=== PATIENT | female | born 1935 | race African-American/Black ===

== ENCOUNTER 2016-12-24 08:44 | Emergency (ER) | payer MEDICARE, OTHER ==
--- NOTE | 2016-12-24 10:29 | ER Document Report ---
ED Flu Like - General Chief Complaint: Cough Stated Complaint: COLD Notes: The patient is an 81-year-old female who presents with 1 day of rhinorrhea and dry cough. Her has similar symptoms. She denies fevers, nausea, vomiting, chest pain, shortness of breath, headache, rash or leg swelling. TRAVEL OUTSIDE OF THE [place] IN LAST 30 DAYS: No - Related Data Allergies/Adverse Reactions: Penicillins Allergy (Severe, Verified 10/24/15 07:51) Hives hair dye Allergy (Severe, Uncoded 10/22/15 11:31) rash Past Medical History - General Information source: Patient - Social History Smoking Status: Never Smoker Cigarette use (# per day): No Chew tobacco use (# tins/day): No Frequency of alcohol use: None Drug Abuse: None Family History: Arthritis, Hyperlipidemia, Hypertension, Malignancy, Thyroid Disfunction Patient has suicidal ideation: No Patient has homicidal ideation: No - Past Medical History Cardiac Medical History: Reports: Hx Hypercholesterolemia Denies: Hx Coronary Artery Disease, Hx Heart Attack, Hx Hypertension Pulmonary Medical History: Denies: Hx Asthma, Hx Bronchitis, Hx COPD, Hx Pneumonia Neurological Medical History: Denies: Hx Cerebrovascular Accident, Hx Seizures Renal/ Medical History: Denies: Hx Peritoneal Dialysis GI Medical History: Reports: Hx Gastroesophageal Reflux Disease Musculoskeltal Medical History: Reports Hx Arthritis, Reports Hx Musculoskeletal Deformity, Reports Hx Musculoskeletal Trauma Traumatic Medical History: Reports: Hx Fractures, Hx Pneumothorax Past Surgical History: Reports: Hx Cholecystectomy, Hx Hysterectomy - Immunizations Immunizations up to date: Yes Hx Diphtheria, Pertussis, Tetanus Vaccination: No Review of Systems - Review of Systems Notes: REVIEW OF SYSTEMS: CONSTITUTIONAL: -fevers, -chills EENT: -eye pain, -difficulty swallowing, +nasal congestion CARDIOVASCULAR:-chest pain, -syncope. RESPIRATORY: +cough, -SOB GASTROINTESTINAL: -abdominal pain, - nausea, -vomiting, -diarrhea GENITOURINARY: -dysuria, -hematuria MUSCULOSKELETAL: -back pain, -neck pain SKIN: -rash or skin lesions. HEMATOLOGIC: -easy bruising or bleeding. LYMPHATIC: -swollen, enlarged glands. NEUROLOGICAL: -altered mental status or loss of consciousness, -headache, - neurologic symptoms PSYCHIATRIC: -anxiety, -depression. ALL OTHER SYSTEMS REVIEWED AND NEGATIVE. Physical Exam - Vital signs Vitals: Temp Pulse Resp BP Pulse Ox 97.8 F 77 18 117/67 98 12/24/16 08:59 12/24/16 08:59 12/24/16 08:59 12/24/16 08:59 12/24/16 08:59 - Notes Notes: PHYSICAL EXAMINATION: GENERAL: Well-appearing, well-nourished and in no acute distress. HEAD: Atraumatic, normocephalic. EYES: Pupils equal round and reactive to light, extraocular movements intact, sclera anicteric, conjunctiva are normal. ENT: dry rhinnorhea, nares patent, oropharynx clear without exudates. Moist mucous membranes. NECK: Normal range of motion, supple without lymphadenopathy LUNGS: Breath sounds clear to auscultation bilaterally and equal. No wheezes rales or rhonchi. HEART: Regular rate and rhythm without murmurs ABDOMEN: Soft, nontender, normoactive bowel sounds. No guarding, no rebound. No masses appreciated. EXTREMITIES: Normal range of motion, no pitting or edema. No cyanosis. NEUROLOGICAL: Cranial nerves grossly intact. Normal speech, normal gait. Normal sensory, motor, and reflex exams. PSYCH: Normal mood, normal affect. SKIN: Warm, Dry, normal turgor, no rashes or lesions noted. Course - Re-evaluation Re-evalutation: Patient appears very well. Flu negative. Instructed patient about symptomatic treatment. Will have her follow-up with her primary care physician. - Vital Signs Vital signs: Temp Pulse Resp BP Pulse Ox 97.6 F 72 16 115/70 99 12/24/16 12:01 12/24/16 12:01 12/24/16 12:01 12/24/16 12:01 12/24/16 12:01 Discharge - Discharge Clinical Impression: URI (upper respiratory infection) Qualifiers: URI type: unspecified URI Qualified Code(s): J06.9 - Acute upper respiratory infection, unspecified Condition: Good Disposition: HOME, SELF-CARE Additional Instructions: UPPER RESPIRATORY ILLNESS: You have a viral infection of the respiratory passages -- a "cold." This common infection causes nasal congestion, drainage, and often sore throat and cough. It is highly contagious. The disease usually lasts about 10 to 14 days. There is no "cure" for the viral infection -- it must run its course. If there is a complication, such as bacterial infection in the nose, sinuses, middle ear, or bronchial tubes, antibiotics may be required. The antibiotics won't affect the virus. Drink plenty of fluids. A humidifier may help. An expectorant medication or decongestant may make you more comfortable. Use acetaminophen or ibuprofen for fever or aches. See the doctor if fever persists over two days, if there is any significant worsening of your symptoms, or if you simply fail to improve as expected. BRONCHOSPASM: You have tightness in the bronchial tubes, called bronchospasm. This often occurs with bronchial infections. Allergies, inhaled chemicals, and polluted or cold air can also provoke bronchospasm. It's more likely in patients with asthma in the family. Emergency treatment of bronchospasm may include adrenaline shots or bronchodilator aerosol. You may feel lightheaded and have a rapid pulse for an hour or two. Rest and get plenty of fluids. At home, we'll treat you with a bronchodilator inhaler. Antibiotics and corticosteroids may be required for some patients. Until you recover, avoid chemical fumes, dusts, pollens, and exercising in very cold or dry air. If you smoke, stop now!! If you develop a fever, increased wheezing, chest pain, or severe shortness of breath, you should contact the doctor immediately. DECONGESTANT MEDICATION: A decongestant medicine has been prescribed. Often this medicine is combined in the same tablet with an antihistamine or expectorant. This type of medicine is helpful in treating a bad cold or sinus condition, as well as in treatment of the nasal congestion of hay fever. It is not of much benefit for lung infections. Decongestant medicines are related to stimulants. They can cause an increase in blood pressure and heart rate. Persons with heart disease and high blood pressure should not take decongestants without discussing this with the physician. If you develop palpitations, chest pain, headache, or tremors, stop the medicine and consult your physician. COUGH-SUPPRESSANT & EXPECTORANT MEDICATION: You are to use a cough medication as needed for relief of symptoms. This medicine is a combination of an expectorant (to make the mucous thinner and more easily "coughed up") and a cough suppressant (to reduce the frequency of coughing). The cough-suppressant medicine is related to narcotics. You may experience mild nausea and sleepiness. Some patients who are very sensitive to narcotics may have stomach pain from this medicine. Taking the medicine with food reduces these side effects. Do not drive or work with machinery until you know how this medicine affects you. The expectorant should have no side effects. Iodine-containing expectorants (such as organidin) should not be taken by persons with active thyroid disease unless approved by your doctor. Call the doctor if you develop shortness of breath, hives, rash, itching, lightheadedness, or severe nausea and vomiting. INHALED BRONCHODILATORS: You have received a treatment of and/or prescription for an inhaled bronchodilator -- a medication which stimulates the airways in the lung to dilate. This improves the flow of air in asthma, bronchitis, and emphysema. These medicines have some similarity to adrenaline, and can cause similar side effects: shakiness, racing heart, and a sense of nervousness. These side effects decrease with time. Contact your doctor if these side effects are severe. Do not over-use the medicine. Too-frequent use of the inhaler may make it ineffective. Call your doctor if the inhaler is not controlling your symptoms at the prescribed doses. USE OF ACETAMINOPHEN (Tylenol): Acetaminophen may be taken for pain relief or fever control. It's much safer than aspirin, offering a wider range of "safe" dosages. It is safe during . Some brand names are Tylenol, Panadol, Datril, Anacin 3, Tempra, and Liquiprin. Acetaminophen can be repeated every four hours. The following are maximum recommended dosages: >89 pounds or adults 650 mg to 900 mg Acetaminophen can be repeated every four hours. Maximum dose not to exceed 4000 mg a day. SMOKING: If you smoke, you should stop smoking. The tar and chemicals in cigarette smoke are harmful. Smoking has been shown to cause: emphysema chronic bronchitis lung cancer mouth and throat cancer stomach and pancreas cancer premature aging defects In addition, smoking increases ear and lung infections in children of smokers. FOLLOW-UP CARE: If you have been referred to a physician for follow-up care, call the physician s office for an appointment as you were instructed or within the next two days. If you experience worsening or a significant change in your symptoms, notify the physician immediately or return to the Emergency Department at any time for re-evaluation. Referrals: BISMARK DOWNING MD [Primary Care Provider] - Follow up as needed
[2016-12-24 12:02] VITALS: BP 115/70
== END 2016-12-24 12:01 | disposition home or self-care (01) ==
LOC: ER 08:44
DX: J06.9 Acute upper respiratory infection, unspecified (principal); R05 Cough; J34.89 Other specified disorders of nose and nasal sinuses; Z88.0 Allergy status to penicillin; Z91.048 Other nonmedicinal substance allergy status
CPT/HCPCS: 71020; 87804; 99283

== ENCOUNTER 2017-05-05 11:58 | Emergency (ER) | payer MEDICARE, OTHER ==
--- NOTE | 2017-05-05 12:57 | ER Document Report ---
ED ENT - General Chief Complaint: Sore Throat Stated Complaint: COOKIE STUCK IN THROAT Time Seen by Provider: 05/05/17 12:50 Notes: The patient is an 81-year-old female, past medical history high cholesterol, anxiety, presents with 2 weeks of a foreign body sensation in her throat after she choked on a cookie and her performed the Heimlich on her. She is also having a dry, nonproductive cough since then. She denies stridor, difficulty swallowing, difficulty breathing, fevers, nausea or vomiting. TRAVEL OUTSIDE OF THE [place] IN LAST 30 DAYS: No - Related Data Allergies/Adverse Reactions: Penicillins Allergy (Severe, Verified 05/05/17 12:10) Hives hair dye Allergy (Severe, Uncoded 05/05/17 12:10) rash Past Medical History - General Information source: Patient - Social History Smoking Status: Never Smoker Frequency of alcohol use: None Drug Abuse: None Family History: Arthritis, Hyperlipidemia, Hypertension, Malignancy, Thyroid Disfunction Patient has suicidal ideation: No Patient has homicidal ideation: No - Past Medical History Cardiac Medical History: Reports: Hx Hypercholesterolemia Denies: Hx Coronary Artery Disease, Hx Heart Attack, Hx Hypertension Pulmonary Medical History: Denies: Hx Asthma, Hx Bronchitis, Hx COPD, Hx Pneumonia Neurological Medical History: Denies: Hx Cerebrovascular Accident, Hx Seizures Renal/ Medical History: Denies: Hx Peritoneal Dialysis GI Medical History: Reports: Hx Gastroesophageal Reflux Disease Musculoskeltal Medical History: Reports Hx Arthritis, Reports Hx Musculoskeletal Deformity, Reports Hx Musculoskeletal Trauma Traumatic Medical History: Reports: Hx Fractures, Hx Pneumothorax Past Surgical History: Reports: Hx Cholecystectomy, Hx Hysterectomy - Immunizations Immunizations up to date: Yes Hx Diphtheria, Pertussis, Tetanus Vaccination: No Review of Systems - Review of Systems Notes: REVIEW OF SYSTEMS: CONSTITUTIONAL: -fevers, -chills EENT: +FB sensation in neck, -eye pain, -difficulty swallowing, -nasal congestion CARDIOVASCULAR:-chest pain, -syncope. RESPIRATORY: +cough, -SOB GASTROINTESTINAL: -abdominal pain, - nausea, -vomiting, -diarrhea GENITOURINARY: -dysuria, -hematuria MUSCULOSKELETAL: -back pain, -neck pain SKIN: -rash or skin lesions. HEMATOLOGIC: -easy bruising or bleeding. LYMPHATIC: -swollen, enlarged glands. NEUROLOGICAL: -altered mental status or loss of consciousness, -headache, - neurologic symptoms PSYCHIATRIC: -anxiety, -depression. ALL OTHER SYSTEMS REVIEWED AND NEGATIVE. Physical Exam - Vital signs Vitals: Temp Pulse Resp BP Pulse Ox 97.7 F 79 16 129/85 H 97 05/05/17 12:05/05/17 12:05/05/17 12:05/05/17 12:05/05/17 12:09 - Notes Notes: PHYSICAL EXAMINATION: GENERAL: Well-appearing, well-nourished and in no acute distress. HEAD: Atraumatic, normocephalic. EYES: Pupils equal round and reactive to light, extraocular movements intact, sclera anicteric, conjunctiva are normal. ENT: nares patent, oropharynx clear without exudates. Moist mucous membranes. NECK: Normal range of motion, supple without lymphadenopathy LUNGS: Breath sounds clear to auscultation bilaterally and equal. No wheezes rales or rhonchi. HEART: Regular rate and rhythm without murmurs ABDOMEN: Soft, nontender, normoactive bowel sounds. No guarding, no rebound. No masses appreciated. EXTREMITIES: Normal range of motion, no pitting or edema. No cyanosis. NEUROLOGICAL: Cranial nerves grossly intact. Normal speech, normal gait. Normal sensory and motor exams. PSYCH: Normal mood, normal affect. SKIN: Warm, Dry, normal turgor, no rashes or lesions noted. Course - Re-evaluation Re-evalutation: Patient is in no respiratory distress. No stridor. Handling secretions. Chest x-ray and soft tissue neck does not show any foreign objects. EKG done to assess for possible ACS, but no evidence of ACS at this time on EKG. we will refer patient to GI for further evaluation and treatment. - Vital Signs Vital signs: Temp Pulse Resp BP Pulse Ox 97.7 F 79 18 129/85 H 97 05/05/17 12:05/05/17 12:05/05/17 12:45 05/05/17 12:05/05/17 12:09 - Diagnostic Test Radiology reviewed: Image reviewed, Reports reviewed Radiology results interpreted by me: Soft tissue neck: NAD CXR: NAD - EKG Interpretation by Me EKG shows normal: Sinus rhythm, [place], Intervals, QRS Complexes, ST-T Waves Rate: Normal Discharge - Discharge Clinical Impression: Globus sensation Condition: Stable Disposition: HOME, SELF-CARE Additional Instructions: Your x-ray does not show any foreign objects. Follow-up with the GI doctor for further evaluation and treatment. Referrals: FLOWER CUELLAR MD [ACTIVE STAFF] - Follow up as needed
--- NOTE | 2017-05-05 13:58 | RADIOLOGY REPORT (SQ) ---
EXAM DESCRIPTION: SOFT TISSUE NECK COMPLETED DATE/TIME: 05/05/2017 1:32 pm REASON FOR STUDY: foreign body sensation COMPARISON: None. NUMBER OF VIEWS: Two views. TECHNIQUE: AP and lateral radiographic image of the soft tissues of the neck. LIMITATIONS: None. FINDINGS: EPIGLOTTIS: Normal. Contour normal. Aryepiglottic folds normal. PREVERTEBRAL SOFT TISSUES: Normal. No soft tissue swelling. SUBGLOTTIC AREA: Normal. No narrowing. RETROPHARYNGEAL SPACE: Normal. No soft tissue masses. BONY STRUCTURES: No significant findings. LUNG APICES: Normal. OTHER: No radiopaque foreign body is seen. IMPRESSION: NEGATIVE STUDY OF THE SOFT TISSUES OF THE NECK. TECHNICAL DOCUMENTATION: JOB ID: [id number] [employer]- All Rights Reserved
--- NOTE | 2017-05-05 13:59 | RADIOLOGY REPORT (SQ) ---
EXAM DESCRIPTION: CHEST PA/LAT COMPLETED DATE/TIME: 05/05/2017 1:32 pm REASON FOR STUDY: cough COMPARISON: 12/24/2016 EXAM PARAMETERS: NUMBER OF VIEWS: two views TECHNIQUE: Digital Frontal and Lateral radiographic views of the chest acquired. RADIATION DOSE: NA LIMITATIONS: none FINDINGS: LUNGS AND PLEURA: No opacities, masses or pneumothorax. No pleural effusion. MEDIASTINUM AND HILAR STRUCTURES: No masses or contour abnormalities. HEART AND VASCULAR STRUCTURES: Heart normal size. No evidence for failure. BONES: No acute findings. HARDWARE: None in the chest. OTHER: No other significant finding. IMPRESSION: NO SIGNIFICANT RADIOGRAPHIC FINDING IN THE CHEST. TECHNICAL DOCUMENTATION: JOB ID: [id number] [employer]- All Rights Reserved
[2017-05-05 14:57] VITALS: BP 127/80
--- NOTE | 2017-05-05 21:24 | EKG REPORT ---
SEVERITY:- BORDERLINE ECG - SINUS RHYTHM BORDERLINE T WAVE ABNORMALITIES : Confirmed by: Mona Johnson 05-May-2017 21:23:10
== END 2017-05-05 14:18 | disposition home or self-care (01) ==
LOC: ER 11:58
DX: F45.8 Other somatoform disorders (principal); J02.9 Acute pharyngitis, unspecified; R05 Cough; T17.228A Food in pharynx causing other injury, initial encounter; X58.XXXA Exposure to other specified factors, initial encounter
CPT/HCPCS: 70360; 71020; 93005; 93010; 99283

== ENCOUNTER 2017-08-02 15:38 | Emergency (ER) | payer MEDICARE, OTHER ==
[2017-08-02] MEDS ORDERED: ASPIRIN 325 MG TABLET PO ONE (16:19)
--- NOTE | 2017-08-02 16:32 | ER Document Report ---
ED Medical Screen (RME) - General Chief Complaint: Chest Pain Stated Complaint: CHEST PAIN Time Seen by Provider: 08/02/17 16:14 Mode of Arrival: Ambulatory Information source: Patient Notes: 82 yr old female presents with complaints of chest pressure and abdominal pain. pt denies any fevers or chill , denies any nausea or vomiting. I have greeted and performed a rapid initial assessment of this patient. A comprehensive ED assessment and evaluation of the patient, analysis of test results and completion of the medical decision making process will be conducted by additional ED providers. PHYSICAL EXAMINATION: GENERAL: Well-appearing, well-nourished and in no acute distress. HEAD: Atraumatic, normocephalic. EYES: Pupils equal round extraocular movements intact, conjunctiva are normal. ENT: Nares patent NECK: Normal range of motion LUNGS: No respiratory distress Musculoskeletal: Normal range of motion NEUROLOGICAL: Normal speech, normal gait. PSYCH: Normal mood, normal affect. SKIN: Warm, Dry, normal turgor, no rashes or lesions noted. TRAVEL OUTSIDE OF THE [place] IN LAST 30 DAYS: No - Related Data Allergies/Adverse Reactions: Penicillins Allergy (Severe, Verified 08/02/17 16:17) Hives hair dye Allergy (Severe, Uncoded 08/02/17 16:17) rash Past Medical History - Social History Chew tobacco use (# tins/day): No Frequency of alcohol use: None Drug Abuse: None - Past Medical History Cardiac Medical History: Reports: Hx Hypercholesterolemia Denies: Hx Coronary Artery Disease, Hx Heart Attack, Hx Hypertension Pulmonary Medical History: Denies: Hx Asthma, Hx Bronchitis, Hx COPD, Hx Pneumonia Neurological Medical History: Denies: Hx Cerebrovascular Accident, Hx Seizures Renal/ Medical History: Denies: Hx Peritoneal Dialysis GI Medical History: Reports: Hx Gastroesophageal Reflux Disease Musculoskeltal Medical History: Reports Hx Arthritis, Reports Hx Musculoskeletal Deformity, Reports Hx Musculoskeletal Trauma Traumatic Medical History: Reports: Hx Fractures, Hx Pneumothorax Past Surgical History: Reports: Hx Cholecystectomy, Hx Hysterectomy - Immunizations Immunizations up to date: Yes Hx Diphtheria, Pertussis, Tetanus Vaccination: No Physical Exam - Vital signs Vitals: Temp Pulse Resp BP Pulse Ox 97.4 F 61 20 148/70 H 99 08/02/17 15:51 08/02/17 15:51 08/02/17 15:51 08/02/17 15:51 08/02/17 15:51 Course - Vital Signs Vital signs: Temp Pulse Resp BP Pulse Ox 97.4 F 61 20 148/70 H 99 08/02/17 15:51 08/02/17 15:51 08/02/17 15:51 08/02/17 15:51 08/02/17 15:51
--- NOTE | 2017-08-02 16:49 | ER Document Report ---
ED General - General Mode of Arrival: Ambulatory Information source: Patient TRAVEL OUTSIDE OF THE [place] IN LAST 30 DAYS: No <DENISHA FRANCO - Last Filed: 08/02/17 19:14> <VICTORINO JACOBO - Last Filed: 08/02/17 21:57> - General Chief Complaint: Chest Pain Stated Complaint: CHEST PAIN Time Seen by Provider: 08/02/17 16:14 Notes: 82 yo ex smoker, non htn, non dm, CAD, 1 stent 2010, hysterectomy, non cancer, female had pains in low stomach all day, went to [place] to get a mammogram. On way back home, lives on [facility]-stomach ache was worse, then got spontaneous retrosternal left chest pressure 5/5 at 3 pm , eased some now 3/5. Constipated bm today. No vomiting, no nausea. No SOB. No leg pain. FH: no CAD. PCP: Dr. Mary Anne Velasco (DENISHA FRANCO) - Related Data Allergies/Adverse Reactions: Penicillins Allergy (Severe, Verified 08/02/17 16:17) Hives hair dye Allergy (Severe, Uncoded 08/02/17 16:17) rash Past Medical History - General Information source: Patient - Social History Smoking Status: Never Smoker Chew tobacco use (# tins/day): No Frequency of alcohol use: None Drug Abuse: None Family History: Arthritis, Hyperlipidemia, Hypertension, Malignancy, Thyroid Disfunction - Past Medical History Cardiac Medical History: Reports: Hx Hypercholesterolemia Denies: Hx Coronary Artery Disease, Hx Heart Attack, Hx Hypertension Pulmonary Medical History: Denies: Hx Asthma, Hx Bronchitis, Hx COPD, Hx Pneumonia Neurological Medical History: Denies: Hx Cerebrovascular Accident, Hx Seizures Renal/ Medical History: Denies: Hx Peritoneal Dialysis GI Medical History: Reports: Hx Gastroesophageal Reflux Disease Musculoskeltal Medical History: Reports Hx Arthritis, Reports Hx Musculoskeletal Deformity, Reports Hx Musculoskeletal Trauma Traumatic Medical History: Reports: Hx Fractures, Hx Pneumothorax Past Surgical History: Reports: Hx Cholecystectomy, Hx Hysterectomy - Immunizations Immunizations up to date: Yes Hx Diphtheria, Pertussis, Tetanus Vaccination: No <DENISHA FRANCO - Last Filed: 08/02/17 19:14> Review of Systems - Review of Systems Constitutional: No symptoms reported EENT: No symptoms reported Cardiovascular: See HPI Respiratory: No symptoms reported Gastrointestinal: See HPI Genitourinary: No symptoms reported Female Genitourinary: No symptoms reported Musculoskeletal: No symptoms reported Skin: No symptoms reported Hematologic/Lymphatic: No symptoms reported Neurological/Psychological: No symptoms reported <DENISHA FRANCO - Last Filed: 08/02/17 19:14> Physical Exam - Vital signs Interpretation: Normal, Hypertensive - mild - General General appearance: Appears well, Alert In distress: None - HEENT Head: Normocephalic, Atraumatic Eyes: Normal Pupils: PERRL Mucous membranes: Dry Neck: Supple. No: Lymphadenopathy - Respiratory Respiratory status: No respiratory distress Chest status: Nontender Breath sounds: Normal Chest palpation: Normal - Cardiovascular Rhythm: Regular Heart sounds: Normal auscultation Murmur: No - Abdominal Inspection: Normal Distension: No distension Bowel sounds: Normal Tenderness: Tender - LLQ most, minimal RLQ Organomegaly: No organomegaly. No: Hepatomegaly, Splenomegaly - Back Back: Normal, Nontender. No: CVA tenderness - Extremities General upper extremity: Normal inspection, Nontender, Normal color, Normal ROM , Normal temperature General lower extremity: Normal inspection, Nontender, Normal color, Normal ROM , Normal temperature, Normal weight bearing. No: Billy's sign - Neurological Neuro grossly intact: Yes Cognition: Normal Orientation: AAOx4 Shaye Coma Scale Eye Opening: Spontaneous [place]aye Coma Scale Verbal: Oriented [place] Coma Scale Motor: Obeys Commands Shaye Coma Scale Total: 15 Speech: Normal Motor strength normal: LUE, RUE, LLE, RLE Sensory: Normal - Psychological Associated symptoms: Normal affect, Normal mood - Skin Skin Temperature: Warm Skin Moisture: Dry Skin Color: Normal Skin irregularity: negative: Rash <DENISHA FRANCO - Last Filed: 08/02/17 19:14> - Vital signs Vitals: Temp Pulse Resp BP Pulse Ox 97.4 F 61 20 148/70 H 99 08/02/17 15:51 08/02/17 15:51 08/02/17 15:51 08/02/17 15:51 08/02/17 15:51 Course - Laboratory Result Diagrams: 08/02/17 17:00 08/02/17 17:00 - EKG Interpretation by Ms EKG shows normal: Sinus rhythm Rhythm: NSR <DENISHA FRANCO - Last Filed: 08/02/17 19:14> - Laboratory Result Diagrams: 08/02/17 17:00 08/02/17 17:00 <VICTORINO JACOBO - Last Filed: 08/02/17 21:57> - Re-evaluation Re-evalutation: 08/02/17 19:24 pt up to bathroom for the urine. care transferred to Victorino Jacobo. pending ct, ua and 2nd troponin. (DENISHA FRANCO) 08/02/17 21:49 Patient is an afebrile, well-hydrated, 82-year-old female who presents to the ED with left lower abdominal pain not otherwise specified. Patient's chest pain has since resolved. Vitals are stable. PE otherwise unremarkable. Heart score is 3 (low). CBC, CMP, lipase, urinalysis, cardiac enzymes 2, EKG 2 were all unremarkable for any acute pathology. CXR & CT scan of the abdomen and pelvis was unremarkable for any acute pathology. Low suspicion/risk for ACS , PE, pneumothorax, pericarditis, dissection, acute appendicitis, bowel obstruction, acute cholecystitis, acute cholangitis, perforated diverticulitis, incarcerated hernia, pancreatitis, perforated ulcer, peritonitis, sepsis, pelvic inflammatory disease, ectopic , tubo-ovarian abscess, ovarian torsion, or other systemic emergent condition at this time. Patient is aware that her condition can change from initial presentation and she needs to monitor symptoms closely and seek medical attention if any acute changes. Conservative measures otherwise for symptoms. Recheck with your PCM in 2-3 days. Consider consult with a associate professor of theology. Return to the ED with any worsening/concerning symptoms otherwise as reviewed in discharge. Patient is in agreement and would like to go home to monitor symptoms. Risks/benefits understood. (VICTORINO JACOBO) - Vital Signs Vital signs: Temp Pulse Resp BP Pulse Ox 97.4 F 61 23 H 138/110 H 98 08/02/17 15:51 08/02/17 15:51 08/02/17 21:01 08/02/17 21:01 08/02/17 21:01 - Laboratory Laboratory results interpreted by me: 08/02/17 08/02/17 17:00 21:00 Est GFR (Non-Af Amer) 53 L AST 42 H Creatine Kinase 228 H Urine Blood SMALL H - EKG Interpretation by Me Additional EKG results interpreted by me: 08/02/17 17:00 no acute change (DENISHA FRANCO) Discharge <DENISHA FRANCO - Last Filed: 08/02/17 19:14> <VICTORINO JACOBO - Last Filed: 08/02/17 21:57> - Discharge Clinical Impression: Chest pain of unknown etiology Unspecified abdominal pain Qualifiers: Abdominal location: left lower quadrant Qualified Code(s): R10.32 - Left lower quadrant pain Condition: Stable Disposition: HOME, SELF-CARE Instructions: Abdominal Pain ([facility]), Chest Pain of Unclear Cause ([facility]), Low-Fat Diet ([facility]) Additional Instructions: Maintain adequate fluid/food intake continue home medications as directed Monitor for any acute changes in symptoms Monitor BP closely Recheck with your PCM in 2- 3 days Consider consult with Gastroenterology Return to the ED with any worsening symptoms and/or development of fever, headache, chest pain, palpitations, syncope, shortness of breath, trouble breathing, abdominal pain, n/v/d, blood in stool/urine, loss of control of bowel /bladder, or other worsening symptoms that are concerning to you. Forms: Elevated Blood Pressure Referrals: BISMARK DOWNING MD [NO LOCAL MD] - 08/04/17 CONCEPCION OCHOA MD [ACTIVE STAFF] - Follow up as needed
[2017-08-02 17:20] LABS: ABSOLUTE EOSINOPHILS # (AUTO) 0.1 10^3/uL (0.0-0.6); ABSOLUTE LYMPHOCYTES (AUTO) 1.8 10^3/uL (0.5-4.7); ABSOLUTE MONOCYTES (AUTO) 0.6 10^3/uL (0.1-1.4); ABSOLUTE NEUT (AUTO) 2.7 10^3/uL (1.7-8.2); BASOPHILS % (AUTO) 0.5 % (0-2); EOSINOPHILS % (AUTO) 2.3 % (0-6); HEMOGLOBIN 13.7 g/dL (12.0-15.5); HGB HCT DIFFERENCE 1.1; LYMPHOCYTES % (AUTO) 34.6 % (13-45); MEAN CORPUSCULAR HGB CONC 34.3 g/dL (32.0-36.0); MEAN CORPUSCULAR VOLUME 90 fl (80-97); MONOCYTES % (AUTO) 11.1 % (3-13); RED BLOOD COUNT 4.42 10^6/uL (3.72-5.28); RED CELL DISTRIBUTION WIDTH 13.9 % (11.5-14.0); SEGMENTED NEUTROPHILS % (AUTO) 51.5 % (42-78); WHITE BLOOD COUNT 5.2 10^3/uL (4.0-10.5)
--- NOTE | 2017-08-02 17:29 | RADIOLOGY REPORT (SQ) ---
EXAM DESCRIPTION: CHEST PA/LAT COMPLETED DATE/TIME: 08/02/2017 5:20 pm REASON FOR STUDY: chest pain COMPARISON: 05/05/2017 EXAM PARAMETERS: NUMBER OF VIEWS: two views TECHNIQUE: Digital Frontal and Lateral radiographic views of the chest acquired. RADIATION DOSE: NA LIMITATIONS: Shallow inspiration. FINDINGS: LUNGS AND PLEURA: No confluent infiltrates or pleural effusion. No pneumothorax. MEDIASTINUM AND HILAR STRUCTURES: No masses or contour abnormalities. HEART AND VASCULAR STRUCTURES: Heart normal size. No evidence for failure. BONES: No acute findings. HARDWARE: None in the chest. OTHER: No other significant finding. IMPRESSION: Nothing acute. TECHNICAL DOCUMENTATION: JOB ID: [id number] [employer]- All Rights Reserved
[2017-08-02 17:41] LABS: ALANINE AMINOTRANSFERASE 49 U/L (9-52); ALBUMIN 4.3 g/dL (3.5-5.0); ALKALINE PHOSPHATASE 88 U/L (38-126); ANION GAP 7 (5-19); ASPARTATE AMINO TRANSFERASE 42 U/L (14-36); BILIRUBIN,DIRECT 0.4 mg/dL (0.0-0.4); BILIRUBIN,TOTAL 0.5 mg/dL (0.2-1.3); BLOOD UREA NITROGEN 9 mg/dL (7-20); CALCIUM 9.7 mg/dL (8.4-10.2); CARBON DIOXIDE 30 mmol/L (22-30); CHLORIDE 103 mmol/L (98-107); CREATINE KINASE 228 U/L (30-135); CREATININE RESULT 1.01 mg/dL (0.52-1.25); GLUCOSE 95 mg/dL (75-110); LIPASE 162.2 U/L (23-300); POTASSIUM 4.1 mmol/L (3.6-5.0); TOTAL PROTEIN 7.8 g/dL (6.3-8.2)
[2017-08-02 17:53] LABS: CREATINE KINASE MB 1.93 ng/mL (<4.55)
[2017-08-02 17:54] LABS: TROPONIN I < 0.012 ng/mL
--- NOTE | 2017-08-02 19:25 | RADIOLOGY REPORT (SQ) ---
EXAM DESCRIPTION: CT ABD/PELVIS WITH IV ONLY COMPLETED DATE/TIME: 08/02/2017 7:05 pm REASON FOR STUDY: genrealized abd pain COMPARISON: None. TECHNIQUE: CT scan of the abdomen and pelvis performed using helical scanning technique with dynamic intravenous contrast injection. No oral contrast. Images reviewed with lung, soft tissue, and bone windows. Reconstructed coronal and sagittal MPR images reviewed. Delayed images for evaluation of the urinary system also acquired. All images stored on PACS. All CT scanners at this facility use dose modulation, iterative reconstruction, and/or weight based d osing when appropriate to reduce radiation dose to as low as reasonably achievable (ALARA). [facility]: Dose Right [facility]: CareDose [facility]: Dose Right [facility]: Teradose 4D [facility]: [place] CONTRAST TYPE AND DOSE: contrast/concentration: Isovue 370.00 mg/ml; Total Contrast Delivered: 81.0 ml; Total Saline Delivered: 68.0 ml RENAL FUNCTION: Creatinine 1.01 RADIATION DOSE: Up-to-date CT equipment and radiation dose reduction techniques were employed. CTDIv ol: 5.2 - 6.0 mGy. DLP: 519 mGy-cm.. LIMITATIONS: None. FINDINGS: LOWER CHEST: No significant findings. No nodules or infiltrates. LIVER: Normal size. No masses. No dilated ducts. SPLEEN: Normal size. No focal lesions. PANCREAS: No masses. No significant calcifications. No adjacent inflammation or peripancreatic fluid collections. Pancreatic duct not dilated. GALLBLADDER: Status post cholecystectomy ADRENAL GLANDS: No significant masses or asymmetry. RIGHT KIDNEY AND URETER: No solid masses. No significant calcifications. No hydronephrosis or hyd roureter. LEFT KIDNEY AND URETER: No solid masses. No significant calcifications. No hydronephrosis or hydr oureter. AORTA AND VESSELS: No aneurysm. No dissection. Renal arteries, SMA, celiac without stenosis. RETROPERITONEUM: No retroperitoneal adenopathy, hemorrhage or masses. BOWEL AND PERITONEAL CAVITY: No masses or inflammatory changes. No free fluid or peritoneal masses. There are scattered diverticula in the descending and sigmoid colon without CT evidence for diverticu litis APPENDIX: Normal. PELVIS: No mass. No free fluid. Normal bladder. ABDOMINAL WALL: No masses. No hernias. BONES: No significant or acute findings. OTHER: No other significant finding. IMPRESSION: NO SIGNIFICANT OR ACUTE FINDING IN THE ABDOMEN OR PELVIS ON CT SCAN WITH IV CONTRAST. TECHNICAL DOCUMENTATION: JOB ID: [id number] Quality ID # [id number]: Final reports with documentation of one or more dose reduction techniques (e.g., Au tomated exposure control, adjustment of the mA and/or kV according to patient size, use of iterative reconstruction technique) 2010 [employer]- All Rights Reserved
--- NOTE | 2017-08-02 21:02 | EKG REPORT ---
SEVERITY:- BORDERLINE ECG - SINUS RHYTHM ATRIAL PREMATURE COMPLEX BORDERLINE T WAVE ABNORMALITIES : Confirmed by: Pilar Grayson MD 02-Aug-2017 21:01:53
--- NOTE | 2017-08-02 21:02 | EKG REPORT ---
SEVERITY:- NORMAL ECG - SINUS RHYTHM : Confirmed by: Pilar Grayson MD 02-Aug-2017 21:01:59
[2017-08-02 21:27] LABS: APPEARANCE,URINE CLEAR; BILIRUBIN,URINE NEGATIVE (NEGATIVE); GLUCOSE, URINE NEGATIVE (NEGATIVE); KETONES,URINE NEGATIVE (NEGATIVE); LEUKOCYTE ESTERASE,URINE NEGATIVE (NEGATIVE); NITRITE,URINE NEGATIVE (NEGATIVE); PROTEIN,URINE NEGATIVE (NEGATIVE); URINE SPECIFIC GRAVITY 1.029; UROBILINOGEN,URINE NEGATIVE mg/dL (<2.0)
[2017-08-02 22:23] VITALS: BP 136/87
== END 2017-08-02 22:23 | disposition home or self-care (01) ==
LOC: ER 15:38
DX: R07.9 Chest pain, unspecified (principal); R10.32 Left lower quadrant pain; E11.9 Type 2 diabetes mellitus without complications; I10 Essential (primary) hypertension; Z87.891 Personal history of nicotine dependence; K59.00 Constipation, unspecified
CPT/HCPCS: 93005; 99285; 36415; 87086; 82553; 82550; 83690; 85025; 80053; 81001; 84484; 83880; 71020; 74177; 93010; A9270

== ENCOUNTER 2018-01-04 12:48 | Emergency (ER) | payer MEDICARE, OTHER ==
[2018-01-04] MEDS ORDERED: IBUPROFEN 800 MG TABLET PO ONE (14:24)
--- NOTE | 2018-01-04 14:56 | RADIOLOGY REPORT (SQ) ---
EXAM DESCRIPTION: ELBOW RIGHT AP/LAT COMPLETED DATE/TIME: 01/04/2018 2:48 pm REASON FOR STUDY: right elbow pain COMPARISON: None. NUMBER OF VIEWS: Four view. TECHNIQUE: AP, lateral, and both oblique radiographic images acquired of the right elbow. LIMITATIONS: None. FINDINGS: MINERALIZATION: Normal. BONES: No acute fracture or dislocation. No worrisome bone lesions. No significant osteophytes. JOINT: No effusions. SOFT TISSUES: No soft tissue swelling. No foreign body. OTHER: No other significant finding. IMPRESSION: NEGATIVE STUDY OF THE RIGHT ELBOW. NO EXPLANATION FOR PAIN. TECHNICAL DOCUMENTATION: JOB ID: [id number] [employer]- All Rights Reserved Reading location - IP/workstation name: [email or web address]
--- NOTE | 2018-01-04 15:07 | ER Document Report ---
ED General - General Chief Complaint: Arm Pain Stated Complaint: RIGHT ARM PAIN Time Seen by Provider: 01/04/18 14:20 Mode of Arrival: Ambulatory Information source: Patient Notes: 82 yr old female presents with complaints of right elbow pain of months duration. Pt notes it hurts with movement, , palpation. pt notes it hurts so much she sometimes cant life objects. denies any trauma. notes symptoms are worsening. TRAVEL OUTSIDE OF THE [place] IN LAST 30 DAYS: No - HPI Onset: Other Onset/Duration: Persistent, Worse Quality of pain: Sharp Severity: Mild Pain Level: 1 Associated symptoms: Body/muscle aches Exacerbated by: Movement Relieved by: Denies Similar symptoms previously: No Recently seen / treated by doctor: No - Related Data Allergies/Adverse Reactions: Penicillins Allergy (Severe, Verified 01/04/18 12:50) Hives hair dye Allergy (Severe, Uncoded 01/04/18 12:50) rash Past Medical History - Social History Smoking Status: Never Smoker Cigarette use (# per day): No Chew tobacco use (# tins/day): No Smoking Education Provided: No Frequency of alcohol use: None Drug Abuse: None Family History: Arthritis, Hyperlipidemia, Hypertension, Malignancy, Thyroid Disfunction Patient has suicidal ideation: No Patient has homicidal ideation: No - Past Medical History Cardiac Medical History: Reports: Hx Hypercholesterolemia Denies: Hx Coronary Artery Disease, Hx Heart Attack, Hx Hypertension Pulmonary Medical History: Denies: Hx Asthma, Hx Bronchitis, Hx COPD, Hx Pneumonia Neurological Medical History: Denies: Hx Cerebrovascular Accident, Hx Seizures Renal/ Medical History: Denies: Hx Peritoneal Dialysis GI Medical History: Reports: Hx Gastroesophageal Reflux Disease Musculoskeltal Medical History: Reports Hx Arthritis, Reports Hx Musculoskeletal Deformity, Reports Hx Musculoskeletal Trauma Traumatic Medical History: Reports: Hx Fractures, Hx Pneumothorax Past Surgical History: Reports: Hx Cholecystectomy, Hx Hysterectomy - Immunizations Immunizations up to date: Yes Hx Diphtheria, Pertussis, Tetanus Vaccination: No Review of Systems - Review of Systems Notes: REVIEW OF SYSTEMS: CONSTITUTIONAL : Denies fever, chills, or sweats. Denies recent illness. EENT: Denies eye, ear, throat, or mouth pain or symptoms. Denies nasal or sinus congestion or discharge. Denies throat, tongue, or mouth swelling or difficulty swallowing. CARDIOVASCULAR: Denies chest pain. Denies palpitations or racing or irregular heart beat. Denies ankle edema. RESPIRATORY: Denies cough, cold, or chest congestion. Denies shortness of breath, difficulty breathing, or wheezing. GASTROINTESTINAL: Denies abdominal pain or distention. Denies nausea, vomiting , or diarrhea. Denies blood in vomitus, stools, or per rectum. Denies black, tarry stools. Denies constipation. GENITOURINARY: Denies difficulty urinating, painful urination, burning, frequency, blood in urine, or discharge. FEMALE GENITOURINARY: Denies vaginal bleeding, heavy or abnormal periods, irregular periods. Denies vaginal discharge or odor. MUSCULOSKELETAL: right elbow pain SKIN: Denies rash, lesions or sores. HEMATOLOGIC : Denies easy bruising or bleeding. LYMPHATIC: Denies swollen, enlarged glands. NEUROLOGICAL: Denies confusion or altered mental status. Denies passing out or loss of consciousness. Denies dizziness or lightheadedness. Denies headache. Denies weakness or paralysis or loss of use of either side. Denies problems with gait or speech. Denies sensory loss, numbness, or tingling. Denies seizures. PSYCHIATRIC: Denies anxiety or stress. Denies depression, suicidal ideation, or homicidal ideation. ALL OTHER SYSTEMS REVIEWED AND NEGATIVE. PHYSICAL EXAMINATION: GENERAL: Well-appearing, well-nourished and in no acute distress. HEAD: Atraumatic, normocephalic. EYES: Pupils equal round and reactive to light, extraocular movements intact, conjunctiva are normal. ENT: Nares patent, oropharynx clear without exudates. Moist mucous membranes. NECK: Normal range of motion, supple without lymphadenopathy LUNGS: Breath sounds clear to auscultation bilaterally and equal. No wheezes rales or rhonchi. HEART: Regular rate and rhythm without murmurs ABDOMEN: Soft, nontender, nondistended abdomen. No guarding, no rebound. No masses appreciated. Female : deferred Musculoskeletal: Normal range of motion, no pitting or edema. No cyanosis. Patient has point tenderness upon palpation of the right elbow and the tricep muscle tendon no effusion noted no erythema no bony tenderness NEUROLOGICAL: Cranial nerves grossly intact. Normal speech, normal gait. Normal sensory, motor exams PSYCH: Normal mood, normal affect. SKIN: Warm, Dry, normal turgor, no rashes or lesions noted. Dictation was performed using Dragon voice recognition software Physical Exam - Vital signs Vitals: Temp Pulse Resp BP Pulse Ox 97.6 F 65 17 142/72 H 95 01/04/18 12:56 01/04/18 12:56 01/04/18 12:56 01/04/18 12:56 01/04/18 12:56 Course - Re-evaluation Re-evalutation: 01/04/18 15:13 xray noted no actue fracture, i have no suspicion of cardiac or stroke concerns. Patient looks well is in no distress she will be treated with anti- inflammatories given very strict return precautions with primary care After performing a Medical Screening Examination, I estimate there is LOW risk for INTRACRANIAL HEMORRHAGE, UNSTABLE SPINE FRACTURE, CENTRAL CORD SYNDROME, CAUDA EQUINA, THORACIC AORTIC DISSECTION, PNEUMOTHORAX, PERFORATED BOWEL, RUPTURED ABDOMINAL AORTIC ANEURYSM, ACUTE TENDON RUPTURE, COMPARTMENT SYNDROME, or OPEN FRACTURE, thus I consider the discharge disposition reasonable. Also, there is no evidence or peritonitis, sepsis, or toxicity. I have reevaluated this patient multiple times and no significant life threatening changes are noted. The patient and I have discussed the diagnosis and risks, and we agree with discharging home to follow-up with their primary doctor with the understanding that symptoms and presentations can change. We also discussed returning to the Emergency Department immediately if new or worsening symptoms occur. We have discussed the symptoms which are most concerning (e.g., bloody stool, fever, changing or worsening pain, vomiting) that necessitate immediate return. - Vital Signs Vital signs: Temp Pulse Resp BP Pulse Ox 97.6 F 58 L 18 158/70 H 100 01/04/18 12:56 01/04/18 15:10 01/04/18 15:10 01/04/18 15:10 01/04/18 15:10 - Diagnostic Test Radiology reviewed: Image reviewed, Reports reviewed - elbow pain Discharge - Discharge Clinical Impression: Right elbow pain HTN (hypertension) Qualifiers: Hypertension type: unspecified Qualified Code(s): I10 - Essential (primary) hypertension Condition: Stable Disposition: HOME, SELF-CARE Instructions: Tendon Strain ([facility]) Prescriptions: Naproxen 500 mg PO BID #20 tablet Referrals: YAO VELAZQUEZ DO [ACTIVE STAFF] - Follow up tomorrow
[2018-01-04 15:11] VITALS: BP 158/70
== END 2018-01-04 15:17 | disposition home or self-care (01) ==
LOC: ER 12:48
DX: M25.521 Pain in right elbow (principal); I10 Essential (primary) hypertension; M79.601 Pain in right arm
CPT/HCPCS: 99283; 73070; A9270

== ENCOUNTER 2018-10-17 12:47 | Emergency (ER) | payer MEDICARE, OTHER ==
[2018-10-17 12:55] VITALS: BP 114/76
[2018-10-17] MEDS ORDERED: LIDOCAINE 5% (700 MG) TRANSDERMAL ADH..PATCH TP ONE (13:38)
[2018-10-17] MEDS ORDERED: ACETAMINOPHEN 325 MG TABLET PO ONE (13:38)
--- NOTE | 2018-10-17 14:37 | RADIOLOGY REPORT (SQ) ---
EXAM DESCRIPTION: HIP BILATERAL COMPLETED DATE/TIME: 10/17/2018 2:17 pm REASON FOR STUDY: hip pain COMPARISON: None. NUMBER OF VIEWS: Two views. TECHNIQUE: AP pelvis and additional frog-leg view of the right and left hip. LIMITATIONS: None. FINDINGS: Healed left femoral fracture status post intramedullary noble and intertrochanteric screw pl acement. No evidence of acute fracture or dislocation. No advanced arthropathy. Lower lumbar spond ylosis. SI joints are normal. IMPRESSION: Nothing acute. TECHNICAL DOCUMENTATION: JOB ID: [id number] [employer]- All Rights Reserved Reading location - IP/workstation name: [email or web address]
[2018-10-17] MEDS ORDERED: DEXAMETHASONE SOD PHOS INJ 10 MG/1 ML VIAL IM ONE (14:54)
--- NOTE | 2018-10-17 14:56 | ER Document Report ---
ED General - General Chief Complaint: Hip Pain Stated Complaint: RIGHT HIP PAIN Time Seen by Provider: 10/17/18 13:31 TRAVEL OUTSIDE OF THE [place] IN LAST 30 DAYS: No - HPI Patient complains to provider of: Right hip pain Notes: Patient coming in for evaluation of right hip pain ongoing for the last week. Patient denies any recent trauma. Patient states the pain does not radiate down her leg but is mostly located at the greater trochanter region. Patient denies any fever chills nausea vomiting diarrhea. Patient does admit to having surgery on the left leg with a noble placed in the femur patient is concerned that this noble may have moved as she has had intermittent pain over the last month in the left leg and would also like that checked out as well with an x- ray. Patient otherwise was seen ambulating into the examination room in no obvious distress no limping no gait disturbance - Related Data Allergies/Adverse Reactions: Penicillins Allergy (Severe, Verified 10/17/18 12:50) Hives hair dye Allergy (Severe, Uncoded 01/04/18 12:50) rash Past Medical History - Social History Smoking Status: Never Smoker Chew tobacco use (# tins/day): No Frequency of alcohol use: None Drug Abuse: None Family History: Arthritis, Hyperlipidemia, Hypertension, Malignancy, Thyroid Disfunction Patient has suicidal ideation: No Patient has homicidal ideation: No - Past Medical History Cardiac Medical History: Reports: Hx Hypercholesterolemia Denies: Hx Coronary Artery Disease, Hx Heart Attack, Hx Hypertension Pulmonary Medical History: Denies: Hx Asthma, Hx Bronchitis, Hx COPD, Hx Pneumonia Neurological Medical History: Denies: Hx Cerebrovascular Accident, Hx Seizures Renal/ Medical History: Denies: Hx Peritoneal Dialysis GI Medical History: Reports: Hx Gastroesophageal Reflux Disease Musculoskeletal Medical History: Reports Hx Arthritis, Reports Hx Musculoskeletal Deformity, Reports Hx Musculoskeletal Trauma Traumatic Medical History: Reports: Hx Fractures, Hx Pneumothorax Past Surgical History: Reports: Hx Cholecystectomy, Hx Hysterectomy - Immunizations Immunizations up to date: Yes Hx Diphtheria, Pertussis, Tetanus Vaccination: No Review of Systems - Review of Systems Constitutional: No symptoms reported EENT: No symptoms reported Cardiovascular: No symptoms reported Respiratory: No symptoms reported Gastrointestinal: No symptoms reported Genitourinary: No symptoms reported Female Genitourinary: No symptoms reported Musculoskeletal: Other - Hip pain Skin: No symptoms reported Hematologic/Lymphatic: No symptoms reported Neurological/Psychological: No symptoms reported -: Yes All other systems reviewed and negative Physical Exam - Vital signs Vitals: Temp Pulse Resp BP Pulse Ox 97.7 F 73 18 114/76 97 10/17/18 12:51 10/17/18 12:51 10/17/18 12:51 10/17/18 12:51 10/17/18 12:51 Interpretation: Normal - General General appearance: Appears well, Alert - HEENT Head: Normocephalic, Atraumatic Eyes: Normal Pupils: PERRL - Respiratory Respiratory status: No respiratory distress Chest status: Nontender Breath sounds: Normal Chest palpation: Normal - Cardiovascular Rhythm: Regular Heart sounds: Normal auscultation Murmur: No - Abdominal Inspection: Normal Distension: No distension Bowel sounds: Normal Tenderness: Nontender Organomegaly: No organomegaly - Back Back: Normal, Nontender - Extremities General upper extremity: Normal inspection, Nontender, Normal color, Normal ROM , Normal temperature General lower extremity: Normal inspection, Tender - Mild tenderness is elicited to palpation of the greater trochanter region of the right hip no tenderness to the left hip, Normal color, Normal ROM, Normal temperature, Normal weight bearing. No: Billy's sign - Neurological Neuro grossly intact: Yes Cognition: Normal Orientation: AAOx4 Shaye Coma Scale Eye Opening: Spontaneous Douglas Coma Scale Verbal: Oriented Shaye Coma Scale Motor: Obeys Commands Shaye Coma Scale Total: 15 Speech: Normal Motor strength normal: LUE, RUE, LLE, RLE Sensory: Normal - Psychological Associated symptoms: Normal affect, Normal mood - Skin Skin Temperature: Warm Skin Moisture: Dry Skin Color: Normal Course - Re-evaluation Re-evalutation: 10/17/18 20:38 X-ray was negative for any acute pathology possible etiology for the patient's pain is underlying bursitis a shot of Decadron was given to the patient recommended lidocaine patches and Tylenol therapy for her pain control. Patient stated understanding of these these medications and was discharged home - Vital Signs Vital signs: Temp Pulse Resp BP Pulse Ox 97.7 F 73 18 114/76 97 10/17/18 12:51 10/17/18 12:51 10/17/18 12:51 10/17/18 12:51 10/17/18 12:51 Discharge - Discharge Clinical Impression: Hip pain Condition: Good Disposition: HOME, SELF-CARE Instructions: Arthralgia ([facility]), Bursitis ([facility]) Additional Instructions: Your x-rays today do not show any signs of acute fracture or other worrisome lesions I do believe your hip pain is from bursitis or inflammation in the hip joint. I would recommend taking Tylenol for this pain warm packs ice packs to the area to help out with the pain. Follow-up with your primary care physician. He may also ask your pharmacist about [id number] lidocaine patches. Return to ER symptoms worsen. Referrals: BISMARK DOWNING MD [Primary Care Provider] - Follow up as needed
== END 2018-10-17 15:13 | disposition home or self-care (01) ==
LOC: ER 12:47
DX: M25.551 Pain in right hip (principal); Z88.0 Allergy status to penicillin; E78.00 Pure hypercholesterolemia, unspecified; Z90.49 Acquired absence of other specified parts of digestive tract; Z90.710 Acquired absence of both cervix and uterus
CPT/HCPCS: 99283; 96372; 73522; A9270; J1100

== ENCOUNTER → 2019-01-25 | Outpatient (CLI) | payer MEDICARE, OTHER ==
--- NOTE | 2019-01-25 14:28 | RADIOLOGY REPORT (SQ) ---
EXAM DESCRIPTION: BARIUM SWALLOW ESOPHAGUS COMPLETED DATE/TIME: 01/25/2019 10:10 am REASON FOR STUDY: R13.10 DYSPHAGIA,UNSPECIFIED R13.10 DYSPHAGIA, UNSPECIFIED COMPARISON: None. TECHNIQUE: Under fluoroscopic guidance, patient ingested effervescent granules followed by thick and thin barium. Fluoroscopic spot images and routine radiographic images acquired and stored on PACS. 12 MM BARIUM TABLET GIVEN: Yes. No significant delay in passage. LIMITATIONS: None. FLUOROSCOPY TIME: FLUORO TIME: 1 minutes 10 seconds of fluoroscopy used 9 Images saved to PACS. FINDINGS: NEUROMUSCULAR COORDINATION OF SWALLOW: Normal. No aspiration. Mild narrowing at the level of cricopharyngeus with pulsion diverticulum tract into the right. Narrowing did not significantly delay passage of the 12 mm barium tablet. ESOPHAGEAL MOTILITY: Mild esophageal dysmotility with tertiary contractions. ESOPHAGEAL MUCOSA: Normal mucosa without masses or ulceration. GASTRO-ESOPHAGEAL JUNCTION: No hiatal hernia seen. Mild gastroesophageal reflux. No distal esophage al stricture. NON-GI TRACT STRUCTURES: No significant finding. OTHER: No other significant finding. IMPRESSION: 1. MILD NARROWING AT THE CRICOPHARYNGEUS WITH SMALL PULSION DIVERTICULUM ON THE RIGHT. 2. PRESBYESOPHAGUS 3. MILD GASTROESOPHAGEAL REFLUX. COMMENT: Quality ID [id number]: Final reports for procedures using fluoroscopy that document radiation exp osure indices, or exposure time and number of fluorographic images (if radiation exposure indices are not available) TECHNICAL DOCUMENTATION: JOB ID: [id number] [employer]- All Rights Reserved Reading location - IP/workstation name: [email or web address] [id number]
== END ==
LOC: RAD 10:34
PROVIDERS: ATTEND Internal Medicine
DX: K22.8 Other specified diseases of esophagus (principal); K21.9 Gastro-esophageal reflux disease without esophagitis; R13.10 Dysphagia, unspecified
CPT/HCPCS: 74220

== ENCOUNTER 2019-05-16 13:01 | Emergency (ER) | payer MEDICARE, OTHER ==
--- NOTE | 2019-05-16 13:20 | ER Document Report ---
ED Medical Screen (RME) - General Chief Complaint: Rash Stated Complaint: RASH Time Seen by Provider: 05/16/19 13:17 Primary Care Provider: BISMARK DOWNING MD [Primary Care Provider] - Follow up as needed Mode of Arrival: Ambulatory Information source: Patient Notes: Patient with erythematous rash to scalp with well-demarcated borders that does have some scaling. Patient reports rash for the past several months. I have greeted and performed a rapid initial assessment of this patient. A comprehensive ED assessment and evaluation of the patient, analysis of test results and completion of the medical decision making process will be conducted by additional ED providers. TRAVEL OUTSIDE OF THE [place] IN LAST 30 DAYS: No - Related Data Allergies/Adverse Reactions: Penicillins Allergy (Severe, Verified 05/16/19 13:01) Hives hair dye Allergy (Severe, Uncoded 05/16/19 13:01) rash Past Medical History - Past Medical History Cardiac Medical History: Reports: Hx Hypercholesterolemia Denies: Hx Coronary Artery Disease, Hx Heart Attack, Hx Hypertension Pulmonary Medical History: Denies: Hx Asthma, Hx Bronchitis, Hx COPD, Hx Pneumonia Neurological Medical History: Denies: Hx Cerebrovascular Accident, Hx Seizures Renal/ Medical History: Denies: Hx Peritoneal Dialysis GI Medical History: Reports: Hx Gastroesophageal Reflux Disease Musculoskeltal Medical History: Reports Hx Arthritis, Reports Hx Musculoskeletal Deformity, Reports Hx Musculoskeletal Trauma Traumatic Medical History: Reports: Hx Fractures, Hx Pneumothorax Past Surgical History: Reports: Hx Cholecystectomy, Hx Hysterectomy - Immunizations Immunizations up to date: Yes Hx Diphtheria, Pertussis, Tetanus Vaccination: No Physical Exam - Vital signs Vitals: Temp Pulse Resp BP Pulse Ox 97.5 F 65 16 127/72 H 95 05/16/19 13:07 05/16/19 13:07 05/16/19 13:07 05/16/19 13:07 05/16/19 13:07 - Skin Skin Color: Erythema - Erythematous rash with well demarcated borders to scalp Course - Vital Signs Vital signs: Temp Pulse Resp BP Pulse Ox 97.5 F 65 16 127/72 H 95 05/16/19 13:07 05/16/19 13:07 05/16/19 13:07 05/16/19 13:07 05/16/19 13:07 Doctor's Discharge - Discharge Referrals: BISMARK DOWNING MD [Primary Care Provider] - Follow up as needed
[2019-05-16 14:07] LABS: ALANINE AMINOTRANSFERASE 32 U/L (9-52); ALKALINE PHOSPHATASE 81 U/L (38-126); ANION GAP 6 (5-19); ASPARTATE AMINO TRANSFERASE 30 U/L (14-36); BILIRUBIN,DIRECT 0.2 mg/dL (0.0-0.4); BILIRUBIN,TOTAL 0.3 mg/dL (0.2-1.3); BLOOD UREA NITROGEN 18 mg/dL (7-20); CALCIUM 9.3 mg/dL (8.4-10.2); CARBON DIOXIDE 32 mmol/L (22-30); CHLORIDE 102 mmol/L (98-107); GLUCOSE 113 mg/dL (75-110); SODIUM 140.1 mmol/L (137-145); TOTAL PROTEIN 7.2 g/dL (6.3-8.2)
--- NOTE | 2019-05-16 15:21 | ER Document Report ---
HPI - HPI Patient complains to provider of: skin rash Time Seen by Provider: 05/16/19 13:17 Onset: Other - several months Onset/Duration: Worse Pain Level: Denies Context: Patient complains of rash to the lateral aspects of nose and to scalp area. Patient states that she has had some hair loss to area affected to her scalp. Patient also complains of pruritic skin rash underneath the right breast area. Patient denies any new foods medications or detergents. Patient denies any personal history of lupus although does report a history of lupus in her mother. Associated Symptoms: Other - Skin rash. denies: Fever Exacerbated by: Denies Relieved by: Denies Similar symptoms previously: No Recently seen / treated by doctor: No - ROS ROS below otherwise negative: Yes Systems Reviewed and Negative: Yes All other systems reviewed and negative - CONSTITUTIONAL Constitutional: DENIES: Fever, Chills - NEURO Neurology: DENIES: Headache, Weakness - GASTROINTESTINAL Gastrointestinal: DENIES: Nausea - DERM Skin Color: Erythema Skin Problems: Rash Past Medical History - General Information source: Patient - Social History Smoking Status: Never Smoker Frequency of alcohol use: None Drug Abuse: None Lives with: Spouse/Significant other Family History: Arthritis, Hyperlipidemia, Hypertension, Malignancy, Thyroid Dis function Patient has suicidal ideation: No Patient has homicidal ideation: No - Past Medical History Cardiac Medical History: Reports: Hx Hypercholesterolemia Denies: Hx Coronary Artery Disease, Hx Heart Attack, Hx Hypertension Neurological Medical History: Denies: Hx Cerebrovascular Accident, Hx Seizures Renal/ Medical History: Denies: Hx Peritoneal Dialysis GI Medical History: Reports: Hx Gastroesophageal Reflux Disease Musculoskeletal Medical History: Reports Hx Arthritis, Reports Hx Musculoskeletal Deformity, Reports Hx Musculoskeletal Trauma Traumatic Medical History: Reports: Hx Fractures, Hx Pneumothorax Past Surgical History: Reports: Hx Cholecystectomy, Hx Hysterectomy - Immunizations Immunizations up to date: Yes Hx Diphtheria, Pertussis, Tetanus Vaccination: No Vertical Provider Document - CONSTITUTIONAL Agree With Documented VS: Yes Exam Limitations: No Limitations General Appearance: WD/WN, No Apparent Distress - INFECTION CONTROL TRAVEL OUTSIDE OF THE [place] IN LAST 30 DAYS: No - HEENT HEENT: Atraumatic, Normocephalic - NECK Neck: Normal Inspection, Supple - RESPIRATORY Respiratory: Breath Sounds Normal, No Respiratory Distress - CARDIOVASCULAR Cardiovascular: Regular Rate, Regular Rhythm - BACK Back: Normal Inspection - MUSCULOSKELETAL/EXTREMETIES Musculoskeletal/Extremeties: MAEW - NEURO Level of Consciousness: Awake, Alert, Appropriate Motor/Sensory: No Motor Deficit - DERM Integumentary: Warm, Dry, Rash Adult Front & Back Diagram: 1 - Few scattered erythematous annular lesion underneath the right breast, central area of lesion appears slightly macerated 2 - Extensive erythematous rash to scalp ears and to the lateral aspect of the nose. Margins of rash along scalp are well demarcated and mildly flaky. Course - Re-evaluation Re-evalutation: 05/16/19 15:[address] Gan regarding patient presentation. Does not recommend starting any medications to treat chronic rash to scalp as patient may need outpatient testing to rule out other causes such as lupus. Recommends outpatient follow-up with primary care or dermatology for further management. Patient does have an additional lesion under the right breast worrisome for a fungal skin lesion. Patient encouraged to use topical cream to this area and to see her doctor for further evaluation of her chronic rash to her scalp. Patient does state that she has a maternal family history of lupus and that her mother did present in a similar fashion. No concern for anaphylaxis, patient nontoxic in appearance and stable for discharge otherwise. - Vital Signs Vital signs: Temp Pulse Resp BP Pulse Ox 97.5 F 65 16 127/72 H 95 05/16/19 13:07 05/16/19 13:07 05/16/19 13:07 05/16/19 13:07 05/16/19 13:07 - Laboratory Result Diagrams: 05/16/19 13:27 Laboratory results interpreted by me: 05/16/19 13:27 Carbon Dioxide 32 H Est GFR ( Amer) 57 L Est GFR (Non-Af Amer) 47 L Glucose 113 H Discharge - Discharge Clinical Impression: Skin rash Condition: Stable Disposition: HOME, SELF-CARE Instructions: Skin Fungus ([facility]) Additional Instructions: Return immediately for any new or worsening symptoms Followup with your primary care provider, call tomorrow to make a followup appointment Apply antifungal cream to area underneath your right breast. Have your primary doctor or blow moulding machine operator evaluate your facial and scalp rash. You may need to have additional testing to rule out any systemic illness such as lupus. Prescriptions: Ketoconazole [Nizoral] 1 applic TP DAILY #30 cream.gm. Referrals: BISMARK DOWNING MD [Primary Care Provider] - Follow up as needed RANDELL ALEJO DO [ACTIVE STAFF] - Follow up as needed
[2019-05-16 15:37] VITALS: BP 148/86
== END 2019-05-16 15:30 | disposition home or self-care (01) ==
LOC: ER 13:01
DX: R21 Rash and other nonspecific skin eruption (principal)
CPT/HCPCS: 36415; 80053; 99283

== ENCOUNTER 2019-10-28 11:01 | Emergency (ER) | payer MEDICARE, OTHER ==
[2019-10-28 11:09] VITALS: BP 130/72
[2019-10-28] MEDS ORDERED: LIDOCAINE 1% INJ-PF (10 MG/ML) 30 ML SDV INJ ONE (11:34)
[2019-10-28] MEDS ORDERED: ACETAMINOPHEN 325 MG TABLET PO ONE (11:35)
--- NOTE | 2019-10-28 11:36 | ER Document Report ---
HPI - HPI Patient complains to provider of: Left hip pain Time Seen by Provider: 10/28/19 11:23 Onset/Duration: Persistent Quality of pain: Achy Pain Level: 4 Context: Patient presents complaining of left hip pain for the past 3 days. Patient denies any trauma. Patient does report a distant history of femur fracture involving the left leg many years ago. Patient also complains of skin lesions to bilateral forearms. Patient denies any history of MRSA. Patient denies any fever. Patient states that she is able to ambulate without difficulty. Associated Symptoms: Other - Left hip pain, skin lesions to bilateral arms. denies: Fever, Headache, Vomiting Exacerbated by: Movement Relieved by: Denies Similar symptoms previously: No Recently seen / treated by doctor: No - ROS ROS below otherwise negative: Yes Systems Reviewed and Negative: Yes All other systems reviewed and negative - CONSTITUTIONAL Constitutional: DENIES: Fever - NEURO Neurology: DENIES: Weakness - GASTROINTESTINAL Gastrointestinal: DENIES: Nausea, Patient vomiting - MUSCULOSKELETAL Musculoskeletal: REPORTS: Extremity pain. DENIES: Back Pain, Neck Pain - DERM Skin Color: Normal Notes: abscess Past Medical History - General Information source: Patient - Social History Smoking Status: Never Smoker Chew tobacco use (# tins/day): No Frequency of alcohol use: None Drug Abuse: None Occupation: None Lives with: Spouse/Significant other Family History: Arthritis, Hyperlipidemia, Hypertension, Malignancy, Thyroid Disfunction Patient has suicidal ideation: No Patient has homicidal ideation: No - Past Medical History Cardiac Medical History: Reports: Hx Hypercholesterolemia Renal/ Medical History: Denies: Hx Peritoneal Dialysis GI Medical History: Reports: Hx Gastroesophageal Reflux Disease Musculoskeletal Medical History: Reports Hx Arthritis, Reports Hx Musculoskeletal Deformity, Reports Hx Musculoskeletal Trauma Psychiatric Medical History: Reports: Hx Anxiety Traumatic Medical History: Reports: Hx Fractures, Hx Pneumothorax Past Surgical History: Reports: Hx Cholecystectomy, Hx Hysterectomy, Hx Orthopedic Surgery - Immunizations Immunizations up to date: Yes Hx Diphtheria, Pertussis, Tetanus Vaccination: No Vertical Provider Document - CONSTITUTIONAL Agree With Documented VS: Yes Exam Limitations: No Limitations General Appearance: WD/WN, No Apparent Distress - INFECTION CONTROL TRAVEL OUTSIDE OF THE [place] IN LAST 30 DAYS: No - HEENT HEENT: Atraumatic, Normocephalic - NECK Neck: Normal Inspection, Supple - RESPIRATORY Respiratory: Breath Sounds Normal, No Respiratory Distress - CARDIOVASCULAR Cardiovascular: Regular Rate, Regular Rhythm - BACK Back: Normal Inspection - MUSCULOSKELETAL/EXTREMETIES Musculoskeletal/Extremeties: MAEW, FROM, Tender - Left hip joint tenderness, No Edema - NEURO Level of Consciousness: Awake, Alert, Appropriate Motor/Sensory: No Motor Deficit - DERM Integumentary: Warm, Dry, Abscess - Patient with multiple small abscess to the ulnar aspect of bilateral forearms Course - Re-evaluation Re-evalutation: 10/28/19 13:01 Reviewed results of patient's x-ray. Patient does have callus in the midshaft of the left femur that was worrisome for possible loosening. Patient does not have any tenderness to the left midshaft or distal femur. Patient with localized tenderness only to the left hip joint. Patient is able to ambulate wi thout any difficulty. Patient actually drove herself here with her . Patient encouraged to follow-up with her orthopedic surgeon for recheck and concerns about orthopedic hardware failure at this time. 10/28/19 20:35 - Vital Signs Vital signs: Temp Pulse Resp BP Pulse Ox 97.3 F 87 16 130/72 H 98 10/28/19 11:09 10/28/19 11:05 10/28/19 11:09 10/28/19 11:05 10/28/19 11:09 - Diagnostic Test Radiology reviewed: Image reviewed, Reports reviewed Procedures - Incision and Drainage Left Arm Type: Simple Anesthetic type: 1% Lidocaine Blade size: 11 I&D procedure: Betadine prep applied Incision Method: Incision made by scalpel Amount/type of drainage: scant amount of purulent and bloody drainage Adult Front & Back picture: 1 - small abscess 2 - abscess Right Arm Type: Simple Anesthetic type: 1% Lidocaine Blade size: 11 I&D procedure: Chlorprep applied Incision Method: Incision made by scalpel Amount/type of drainage: small amount of purlent/bloody drainage Adult Front & Back picture: 1 - abscess 2 - abscess Discharge - Discharge Clinical Impression: Abscess, Encounter for incision and drainage procedure, Left hip pain, Arthritis Condition: Stable Disposition: HOME, SELF-CARE Instructions: Abscess ([facility]), Arthritis ([facility]), Post Incision and Drainage, Trimethoprim-Sulfa ([facility]), Ultram ([facility]) Additional Instructions: Return immediately for any new or worsening symptoms Followup with your primary care provider, call tomorrow to make a followup appointment Follow-up with an orthopedic surgeon for recheck. You have x-ray findings that are worrisome for possible loosening of your hardware in the thigh area. Call the orthopedic surgeon on Wednesday for recheck. Avoid picking and scratching at the skin lesions. Prescriptions: Sulfamethoxazole/Trimethoprim [Bactrim Ds Tablet] 1 each PO BID #20 tablet Mupirocin [Bactroban 2% Ointment 22 gm] 1 applic TP TID #22 gm Tramadol HCl [Ultram 50 mg Tablet] 50 mg PO ASDIR PRN #15 tablet PRN Reason: Referrals: BISMARK DOWNING MD [Primary Care Provider] - Follow up as needed [facility] [Provider Group] - Follow up as needed [facility] [Provider Group] - Follow up as needed ADRIÁN DALEY MD [ACTIVE PROVISIONAL STAFF] - Follow up as needed
--- NOTE | 2019-10-28 12:02 | RADIOLOGY REPORT (SQ) ---
EXAM DESCRIPTION: HIP LEFT AP/LATERAL COMPLETED DATE/TIME: 10/28/2019 11:50 am REASON FOR STUDY: left Hip pain COMPARISON: None. NUMBER OF VIEWS: Two views. TECHNIQUE: AP pelvis and additional frog-leg view of the left hip. LIMITATIONS: None. FINDINGS: MINERALIZATION: Normal. LEFT HIP: Surgical changes. No evidence for proximal hardware failure. Distally in the middle 3rd o f the femur is exuberant periosteal thickening. This raises the question of distal loosening of the prosthesis. RIGHT HIP: No fracture or dislocation. No worrisome bone lesions. PUBIS AND ISCHIUM: No fracture. PELVIS: No fracture. SACRUM: No fracture or dislocation. No worrisome bone lesions. LOWER LUMBAR SPINE: No fracture or dislocation. No worrisome bone lesions. No significant disc disea se. SOFT TISSUES: No findings. OTHER: No other significant finding. IMPRESSION: Surgical changes left hip. Proximal prosthesis is intact. There is exuberant callus in the midshaft of the femur not completely imaged. Worrisome for distal l oosening. COMMENT: Recommend views of the femur. TECHNICAL DOCUMENTATION: JOB ID: [id number] [employer]- All Rights Reserved Reading location - IP/workstation name: [email or web address]
== END 2019-10-28 13:22 | disposition home or self-care (01) ==
LOC: ER 11:01
DX: L02.413 Cutaneous abscess of right upper limb (principal); L02.414 Cutaneous abscess of left upper limb; M16.12 Unilateral primary osteoarthritis, left hip; M25.552 Pain in left hip; E78.00 Pure hypercholesterolemia, unspecified; Z90.710 Acquired absence of both cervix and uterus; Z90.49 Acquired absence of other specified parts of digestive tract
CPT/HCPCS: 99283; 87070; 87205; 73502; 10061; A9270

== ENCOUNTER 2019-11-22 15:41 | Emergency (ER) | payer MEDICARE, OTHER ==
[2019-11-22] MEDS ORDERED: MORPHINE SULFATE 10 MG/ML INJ IV ONE (16:26)
--- NOTE | 2019-11-22 16:27 | ER Document Report ---
ED Medical Screen (RME) - General Chief Complaint: Abdominal Pain Stated Complaint: ABDOMINAL PAIN Time Seen by Provider: 11/22/19 16:14 Primary Care Provider: BISMARK DOWNING MD [Primary Care Provider] - Follow up as needed Notes: Patient is an 84-year-old female who presents to the emergency department with a chief complaint of mid upper to center abdominal pain. Patient states that her symptoms started about 3 days ago. 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 Exam: Soft, tender upper to mid abdomen. I have greeted and performed a rapid initial assessment of this patient. A comprehensive ED assessment and evaluation of the patient, analysis of test results and completion of medical decision making process will be conducted by an additional ED providers. TRAVEL OUTSIDE OF THE [place] IN LAST 30 DAYS: No - Related Data Allergies/Adverse Reactions: Penicillins Allergy (Severe, Verified 11/22/19 16:14) Hives hair dye Allergy (Severe, Uncoded 11/22/19 16:14) rash Past Medical History - Past Medical History Cardiac Medical History: Reports: Hx Hypercholesterolemia Denies: Hx Coronary Artery Disease, Hx Heart Attack, Hx Hypertension Pulmonary Medical History: Denies: Hx Asthma, Hx Bronchitis, Hx COPD, Hx Pneumonia Neurological Medical History: Denies: Hx Cerebrovascular Accident, Hx Seizures Renal/ Medical History: Denies: Hx Peritoneal Dialysis GI Medical History: Reports: Hx Gastroesophageal Reflux Disease Musculoskeltal Medical History: Reports Hx Arthritis, Reports Hx Musculoskeletal Deformity, Reports Hx Musculoskeletal Trauma Psychiatric Medical History: Reports: Hx Anxiety Traumatic Medical History: Reports: Hx Fractures, Hx Pneumothorax Past Surgical History: Reports: Hx Cholecystectomy, Hx Hysterectomy, Hx Orth opedic Surgery - Immunizations Immunizations up to date: Yes Hx Diphtheria, Pertussis, Tetanus Vaccination: No Physical Exam - Vital signs Vitals: Temp Pulse Resp BP Pulse Ox 97.7 F 65 16 138/75 H 99 11/22/19 15:58 11/22/19 15:58 11/22/19 15:58 11/22/19 15:58 11/22/19 15:58 Course - Vital Signs Vital signs: Temp Pulse Resp BP Pulse Ox 97.7 F 65 16 138/75 H 99 11/22/19 15:58 11/22/19 15:58 11/22/19 15:58 11/22/19 15:58 11/22/19 15:58 Doctor's Discharge - Discharge Referrals: BISMARK DOWNING MD [Primary Care Provider] - Follow up as needed
[2019-11-22 17:11] LABS: ABSOLUTE EOSINOPHILS # (AUTO) 0.2 10^3/uL (0.0-0.6); ABSOLUTE LYMPHOCYTES (AUTO) 1.9 10^3/uL (0.5-4.7); ABSOLUTE MONOCYTES (AUTO) 0.6 10^3/uL (0.1-1.4); ABSOLUTE NEUT (AUTO) 3.8 10^3/uL (1.7-8.2); BASOPHILS % (AUTO) 0.7 % (0-2); EOSINOPHILS % (AUTO) 2.5 % (0-6); HEMATOCRIT 41.5 % (36.0-47.0); HEMOGLOBIN 13.9 g/dL (12.0-15.5); LYMPHOCYTES % (AUTO) 29.8 % (13-45); MEAN CORPUSCULAR HEMOGLOBIN 29.9 pg (27.0-33.4); MEAN CORPUSCULAR HGB CONC 33.4 g/dL (32.0-36.0); MEAN CORPUSCULAR VOLUME 90 fl (80-97); MONOCYTES % (AUTO) 8.9 % (3-13); PLATELET COUNT 297 10^3/uL (150-450); RED BLOOD COUNT 4.64 10^6/uL (3.72-5.28); RED CELL DISTRIBUTION WIDTH 14.8 % (11.5-14.0); SEGMENTED NEUTROPHILS % (AUTO) 58.1 % (42-78); TOTAL CELLS COUNTED % (AUTO) 100 %; WHITE BLOOD COUNT 6.5 10^3/uL (4.0-10.5)
[2019-11-22 17:32] LABS: ALBUMIN 4.3 g/dL (3.5-5.0); ALKALINE PHOSPHATASE 89 U/L (38-126); ANION GAP 5 (5-19); ASPARTATE AMINO TRANSFERASE 37 U/L (14-36); BILIRUBIN,DIRECT 0.3 mg/dL (0.0-0.4); BILIRUBIN,TOTAL 0.6 mg/dL (0.2-1.3); BLOOD UREA NITROGEN 13 mg/dL (7-20); CALCIUM 9.5 mg/dL (8.4-10.2); CARBON DIOXIDE 32 mmol/L (22-30); CHLORIDE 101 mmol/L (98-107); GLUCOSE 104 mg/dL (75-110); POTASSIUM 4.7 mmol/L (3.6-5.0); TOTAL PROTEIN 8.3 g/dL (6.3-8.2)
--- NOTE | 2019-11-22 18:45 | RADIOLOGY REPORT (SQ) ---
EXAM DESCRIPTION: CT ABD/PELVIS WITH IV ONLY COMPLETED DATE/TIME: 11/22/2019 6:29 pm REASON FOR STUDY: abdominal pain COMPARISON: 08/02/2017 TECHNIQUE: CT scan of the abdomen and pelvis performed using helical scanning technique with dynamic intravenous contrast injection. No oral contrast. Images reviewed with lung, soft tissue, and bone windows. Reconstructed coronal and sagittal MPR images reviewed. Delayed images for evaluation of the urinary system also acquired. All images stored on PACS. All CT scanners at this facility use dose modulation, iterative reconstruction, and/or weight based d osing when appropriate to reduce radiation dose to as low as reasonably achievable (ALARA). [facility]: Dose Right [facility]: CareDose [facility]: Dose Right [facility]: Teradose 4D [facility]: Novalact CONTRAST TYPE AND DOSE: contrast/concentration: Isovue 350.00 mg/ml; Total Contrast Delivered: 86.0 ml; Total Saline Delivered: 24.6 ml RENAL FUNCTION: BUN 13 creatinine 1.03 RADIATION DOSE: CT Rad equipment meets quality standard of care and radiation dose reduction techniq ues were employed. CTDIvol: 6.7 - 9.4 mGy. DLP: 782 mGy-cm.. LIMITATIONS: None. FINDINGS: LOWER CHEST: No significant findings. No nodules or infiltrates. LIVER: Normal size. No masses. No dilated ducts. SPLEEN: Normal size. No focal lesions. PANCREAS: No masses. No significant calcifications. No adjacent inflammation or peripancreatic fluid collections. Pancreatic duct not dilated. GALLBLADDER: Surgically absent. ADRENAL GLANDS: No significant masses or asymmetry. RIGHT KIDNEY AND URETER: No solid masses. No significant calcifications. No hydronephrosis or hyd roureter. LEFT KIDNEY AND URETER: No solid masses. No significant calcifications. No hydronephrosis or hydr oureter. AORTA AND VESSELS: No aneurysm. No dissection. Renal arteries, SMA, celiac without stenosis. RETROPERITONEUM: No retroperitoneal adenopathy, hemorrhage or masses. BOWEL AND PERITONEAL CAVITY: Descending and sigmoid diverticulosis with no associated acute inflammat ion. APPENDIX: Normal. PELVIS: No mass. No free fluid. Normal bladder. ABDOMINAL WALL: No masses. No hernias. BONES: Prior ORIF left hip or femur. No osseous lesions. OTHER: No other significant finding. IMPRESSION: No acute finding. Diverticulosis coli. TECHNICAL DOCUMENTATION: JOB ID: [id number] Quality ID # [id number]: Final reports with documentation of one or more dose reduction techniques (e.g., Au tomated exposure control, adjustment of the mA and/or kV according to patient size, use of iterative reconstruction technique) 2010 [employer]- All Rights Reserved Reading location - IP/workstation name: [email or web address]
[2019-11-22 20:45] LABS: APPEARANCE,URINE CLEAR; BILIRUBIN,URINE NEGATIVE (NEGATIVE); COLOR,URINE STRAW; GLUCOSE, URINE NEGATIVE (NEGATIVE); KETONES,URINE NEGATIVE (NEGATIVE); LEUKOCYTE ESTERASE,URINE NEGATIVE (NEGATIVE); NITRITE,URINE NEGATIVE (NEGATIVE); PROTEIN,URINE NEGATIVE (NEGATIVE); URINE SPECIFIC GRAVITY 1.036; UROBILINOGEN,URINE NEGATIVE mg/dL (<2.0)
[2019-11-22] MEDS ORDERED: ACETAMINOPHEN 325 MG TABLET PO ONE (22:05)
--- NOTE | 2019-11-22 22:05 | ER Document Report ---
ED GI/ - General Chief Complaint: Abdominal Pain Stated Complaint: ABDOMINAL PAIN Time Seen by Provider: 11/22/19 16:14 Primary Care Provider: BISMARK DOWNING MD [Primary Care Provider] - Follow up as needed Mode of Arrival: Ambulatory Information source: Patient Notes: 84-year-old female presented to ED for complaint of generalized abdominal pain. She states her symptoms started about 3 days ago. 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 The tumors were removed. She is alert oriented respirations regular nonlabored speaking in full sentences. She states she has had a bowel movement yesterday but not 1 today. She is afebrile no nausea or vomiting. Patient was treated with morphine in the triage area she is also had labs which came back within normal limits and a CT abdomen and pelvis which was negative for any acute abnormalities. I have reviewed labs and CT with patient. Her abdomen is soft nondistended with mild tenderness generalized. She does have hyperactive bowel sounds throughout. TRAVEL OUTSIDE OF THE [place] IN LAST 30 DAYS: No - HPI Patient complains to provider of: Abdominal pain Onset: Other - The days Timing/Duration: Waxing and waning Quality of pain: Sharp Severity at maximum: Severe Severity in ED: Moderate Pain Level: 3 Location: Other - Generalized Vaginal bleeding (Compared to normal period): None Menstrual period history: Post-menopausal Associated symptoms: denies: Diarrhea, Loss of appetite, Nausea, Vomiting Exacerbated by: Denies Relieved by: Denies Similar symptoms previously: Yes Recently seen / treated by doctor: Yes - Related Data Allergies/Adverse Reactions: Penicillins Allergy (Severe, Verified 11/22/19 16:14) Hives hair dye Allergy (Severe, Uncoded 11/22/19 16:14) rash Past Medical History - General Information source: Patient - Social History Smoking Status: Former Smoker Frequency of alcohol use: None Drug Abuse: None Lives with: Family Family History: Arthritis, Hyperlipidemia, Hypertension, Malignancy, Thyroid Disfunction Patient has suicidal ideation: No Patient has homicidal ideation: No - Past Medical History Cardiac Medical History: Reports: Hx Hypercholesterolemia Pulmonary Medical History: Reports: None EENT Medical History: Reports: None Neurological Medical History: Reports: None Endocrine Medical History: Reports: None Renal/ Medical History: Reports: None. Denies: Hx Peritoneal Dialysis Malignancy Medical History: Reports: None GI Medical History: Reports: Hx Gastroesophageal Reflux Disease, Hx Colonoscopy, Hx Endoscopy Musculoskeletal Medical History: Reports Hx Arthritis, Reports Hx Musculoskeletal Deformity, Reports Hx Musculoskeletal Trauma Skin Medical History: Reports None Psychiatric Medical History: Reports: Hx Anxiety Traumatic Medical History: Reports: Hx Fractures, Hx Pneumothorax Infectious Medical History: Reports: None Past Surgical History: Reports: Hx Cholecystectomy, Hx Hysterectomy, Hx Orthopedic Surgery - Immunizations Immunizations up to date: Yes Hx Diphtheria, Pertussis, Tetanus Vaccination: No Review of Systems - Review of Systems Constitutional: No symptoms reported EENT: No symptoms reported Cardiovascular: No symptoms reported Respiratory: No symptoms reported Gastrointestinal: Abdominal pain. denies: Abdomen distended, Diarrhea, Nausea, Vomiting, Constipation Genitourinary: No symptoms reported Female Genitourinary: No symptoms reported Musculoskeletal: No symptoms reported Skin: No symptoms reported Hematologic/Lymphatic: No symptoms reported Neurological/Psychological: No symptoms reported -: Yes All other systems reviewed and negative Physical Exam - Vital signs Vitals: Temp Pulse Resp BP Pulse Ox 97.7 F 65 16 138/75 H 99 11/22/19 15:58 11/22/19 15:58 11/22/19 15:58 11/22/19 15:58 11/22/19 15:58 Interpretation: Normal - General General appearance: Appears well, Alert - HEENT Head: Normocephalic, Atraumatic Eyes: Normal Pupils: PERRL - Respiratory Respiratory status: No respiratory distress Chest status: Nontender Breath sounds: Normal Chest palpation: Normal - Cardiovascular Rhythm: Regular Heart sounds: Normal auscultation Murmur: No - Abdominal Inspection: Normal Distension: No distension. No: Distended Bowel sounds: Hyperactive Tenderness: Tender - In the last Organomegaly: No organomegaly. No: Hepatomegaly, Splenomegaly - Back Back: Normal, Nontender - Extremities General upper extremity: Normal inspection, Nontender, Normal color, Normal ROM, Normal temperature General lower extremity: Normal inspection, Nontender, Normal color, Normal ROM, Normal temperature, Normal weight bearing. No: Billy's sign - Neurological Neuro grossly intact: Yes Cognition: Normal Orientation: AAOx4 [place] Coma Scale Eye Opening: Spontaneous [place] Coma Scale Verbal: Oriented [place]aye Coma Scale Motor: Obeys Commands Shaye Coma Scale Total: 15 Speech: Normal Motor strength normal: LUE, RUE, LLE, RLE Sensory: Normal - Psychological Associated symptoms: Normal affect, Normal mood - Skin Skin Temperature: Warm Skin Moisture: Dry Skin Color: Normal Course - Vital Signs Vital signs: Temp Pulse Resp BP Pulse Ox 97.4 F 64 20 137/64 H 98 11/22/19 19:49 11/22/19 19:49 11/22/19 19:49 11/22/19 19:49 11/22/19 19:49 - Laboratory Result Diagrams: 11/22/19 16:55 11/22/19 16:55 Laboratory results interpreted by me: 11/22/19 11/22/19 16:55 16:55 RDW 14.8 H Carbon Dioxide 32 H Est GFR (MDRD) Non-Af 51 L AST 37 H Total Protein 8.3 H Discharge - Discharge Clinical Impression: Abdominal pain Qualifiers: Abdominal location: generalized Qualified Code(s): R10.84 - Generalized abdominal pain Condition: Stable Disposition: HOME, SELF-CARE Additional Instructions: ABDOMINAL PAIN: There are many causes of abdominal pain. Pain can mean a serious problem requiring surgery (such as appendicitis). It can also be an innocent problem that goes away on its own (such as a viral infection). Often, time must pass to determine the cause of pain. The physician does not feel that hospitalization is necessary, at present. Things may change within the next 24 hours. Call the doctor or come back for re- examination if any problems occur, such as: (1) Pain that becomes more severe, steady, or becomes concentrated in one specific area. Also, pain that is more severe with movement or coughing. (2) Vomiting that persists or becomes more frequent. (3) Blood in the vomitus, urine, or bowel movements. Blood in the stool may have a tarry or black appearance. (4) Shaking chills or fever greater than 100 degrees F. (5) The abdomen becomes more distended or swollen. (6) Bowel movements cease. (7) Failure to improve as expected. NORMAL EXAM AND WORKUP: At this time, your examination and workup show no significant abnormality. No significant abnormal physical findings are noted. All laboratory, EKG, and imaging (x-ray, CT scans, ultrasound) studies that were ordered show no significant abnormality. Although your examination and all studies that were ordered showed no significant abnormal finding, there are no examinations and no studies that are 100% accurate. There is always the possibility that some abnormality could exist and not be detected with physical examination or within the limits and capabilities of laboratory and other studies. You should return or follow up as you were instructed on your visit today for further evaluation if your symptoms do not resolve. PAIN MEDICATION INJECTION: You have received an injection of a pain medication. You should experience significant pain relief within 45 minutes. This drug is a narcotic -- it will impair your judgement, slow your reaction time and make you sleepy (as well as relieve your pain). Narcotics also can cause nausea. You should not drive, work with machinery, or perform any task requiring me ntal alertness until all effects of the medication are gone -- six to eight hours. Do not take any alcohol, or sedatives, and do not take any other medication without checking with your physician. ANT[place]AUSEA MEDICATION: You have been given a medication to suppress nausea and vomiting. This type of medication can be given as a shot, pill, or suppository. It will usually last for many hours. Pills and shots usually last six to eight hours, suppositories last about 12 hours. For the typical illness, only one or two doses of the medication may be necessary. Mild lightheadedness may occur. This type of medicine can cause drowsiness. Do not drive or operate dangerous machinery while under its influence. Do not mix with alcohol. See your doctor at once if you have muscle spasms or tightness, or uncontrollable motions (particularly of the neck, mouth, or jaw). Persistent v omiting or severe lightheadedness should also be evaluated by the physician. FOLLOW-UP CARE: If you have been referred to a physician for follow-up care, call the physicians office for an appointment as you were instructed or within the next two days. If you experience worsening or a significant change in your symptoms, notify the physician immediately or return to the Emergency Department at any time for re-evaluation. Prescriptions: Ondansetron [Zofran Odt 4 mg Tablet] 1 tab PO Q6H #15 tab.rapdis Forms: Elevated Blood Pressure Referrals: BISMARK DOWNING MD [Primary Care Provider] - Follow up tomorrow
[2019-11-22 22:15] VITALS: BP 147/86
== END 2019-11-22 22:15 | disposition home or self-care (01) ==
LOC: ER 15:41
DX: R10.84 Generalized abdominal pain (principal); E78.00 Pure hypercholesterolemia, unspecified; Z88.0 Allergy status to penicillin; Z91.041 Radiographic dye allergy status; Z90.49 Acquired absence of other specified parts of digestive tract; Z90.710 Acquired absence of both cervix and uterus
CPT/HCPCS: 99284; 96374; 36415; 83690; 85025; 80053; 81001; 74177; A9270; J2270